=== PATIENT | female | born 1990 | race Caucasian/White ===

== ENCOUNTER 2021-01-18 17:50 | Emergency (ER) | payer MEDICAID ==
[~2021-01-18] VITALS: Ht 162.6 cm; Wt 100.0 kg
[2021-01-18 17:56] VITALS: BP 119/75
== END 2021-01-18 20:44 | disposition home or self-care (01) ==
LOC: ER 17:51
DX: M54.6 Pain in thoracic spine (principal); M25.512 Pain in left shoulder; R05 Cough; J45.909 Unspecified asthma, uncomplicated; Z88.1 Allergy status to other antibiotic agents; Z88.8 Allergy status to other drugs, medicaments and biological substances
CPT/HCPCS: 71046; 99283